=== PATIENT | male | born 1990 | race Caucasian/White ===

== ENCOUNTER 2018-04-02 01:47 | Emergency (ER) | payer SELFPAY ==
[2018-04-02 01:53] VITALS: BP 167/103
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
== END 2018-04-02 02:24 | disposition home or self-care (01) ==
DX: S00.81XA Abrasion of other part of head, initial encounter (principal); S60.512A Abrasion of left hand, initial encounter; S50.312A Abrasion of left elbow, initial encounter; F10.921 Alcohol use, unspecified with intoxication delirium; W10.1XXA Fall (on)(from) sidewalk curb, initial encounter; Y92.410 Unspecified street and highway as the place of occurrence of the external cause; Y99.8 Other external cause status; Y93.84 Activity, sleeping